=== PATIENT | female | born 1950 | race Caucasian/White ===

== ENCOUNTER 2016-10-26 19:08 | Inpatient (IN) | payer BC, MEDICARE ==
--- NOTE | ~2016-10-26 | CO ---
Unit #: [id number] #: [id number] Patient: RAMOS HUBER [id number] [address] [place], [place] [address] [id number] I MR#: [id number] NAME: RAMOS HUBER. ROOM: 314 Age: 66 Sex: F Admission Date: 10/26/2016 : 1950 Attending Physician: Adrianna Parmar M.D. Primary Care Physician: Pia Pool M.D. CONSULTATION REPORT REASON FOR CONSULTATION Elevated troponin. HISTORY OF PRESENT ILLNESS This is a 66-year-old white female, who is known to Dr. Vazquez, who has a history of coronary artery disease, where she had a myocardial infarction at some point. She had a PCI in 1998 and coronary artery bypass graft x6 in 2000. At that year later, she underwent angioplasty with stent placement. She is known to have paroxysmal atrial fibrillation and is on anticoagulation with Coumadin. The patient is admitted with altered mental status. She states she was in her usual state of health, but her only complaint was right leg pain. She was outside cleaning out of [facility] to get ready for trip and does not remember anything else until she awakened in the hospital. According to the records, the patient was found by her lying in the sun in the yard. She was confused. She was brought into the emergency room for evaluation, where she was found to be febrile with temperature of 105.8. She has been treated for urinary tract infection. There was elevation of her CK total of 1826 consistent with rhabdomyolysis. Her troponin initially negative, but peaked today at 1.49. She had no acute EKG changes. She denies any symptoms of angina, palpitations, or dizziness. She had no paroxysmal nocturnal dyspnea, orthopnea, or leg edema prior to this event. She is hypertensive with blood pressure 157/118 mmHg. She remains chest pain free. PAST MEDICAL HISTORY 1. 2D echocardiogram, 05/14/2013, showed an ejection fraction equal to 50% to 55% with impaired left ventricular relaxation. Very high LVEDP. Severe concentric left ventricular hypertrophy. Left atrium mildly dilated. Trace mitral regurgitation and trace tricuspid regurgitation. 2. Myocardial infarction with history of PCI in 1998. 3. PCI and stent in 2001. No details available. 4. Coronary artery bypass graft x6 in 2000 at [facility]. No details available. 5. Paroxysmal atrial fibrillation, on anticoagulation with Coumadin. 6. Hypertension. 7. Hyperlipidemia. 8. Diabetes mellitus, type 2. 9. Chronic kidney disease. 10. Obstructive sleep apnea. 11. Atrophic kidney. 12. Anxiety/depression. 13. Active smoker. Unit #: [id number] #: [id number] Patient: RAMOS HUBER W 14. Chronic back pain. PAST SURGICAL HISTORY 1. Coronary artery bypass x6. 2. Hemorrhoidectomy. 3. Cataract extraction. 4. Cholecystectomy. 5. Right foot surgery. SOCIAL HISTORY The patient is and retired. She continues to smoke half a pack of cigarettes daily since she was in the 4th grade. She denies illicit drug or alcohol use. FAMILY HISTORY Positive for heart disease in her brother. ALLERGIES No known drug allergies. HOME MEDICATIONS Neurontin 600 mg daily; isosorbide mononitrate 30 mg daily; furosemide 80 mg daily; Lipitor 40 mg daily; melatonin 5 mg daily; metoprolol tartrate 25 mg b.i.d.; Prilosec 20 mg daily; Requip 5 mg daily; sodium bicarbonate 325 mg t.i.d.; Prinivil 10 mg daily; Zanaflex 4 mg daily; Lantus 28 units q.h.s.; Humalog 14 units subcu a.c. breakfast, 10 units a.c. lunch, 14 units a.c. dinner; Spiriva 1 inhalation daily; vitamin B complex two tablets daily; ProAir HFA two puffs inhaled q.6 hours p.r.n.; Flonase nasal spray, two sprays each nostril daily; Lumigan one drop OU daily; hydrocodone/acetaminophen 10/325 t.i.d. REVIEW OF SYSTEMS CONSTITUTIONAL: Negative for fever or chills. Had no weight gain or weight loss. HEENT: No headache. No vision changes or difficulty with swallowing. Denies dizziness. CARDIOVASCULAR: Has no symptoms of angina. Denies palpitations. No paroxysmal nocturnal dyspnea or orthopnea. Unsure of syncope or near syncope. RESPIRATORY: Negative for dyspnea, cough, or hemoptysis. GASTROINTESTINAL: No abdominal pain, nausea, or vomiting. No constipation or melena. EXTREMITIES: Positive for left leg pain. Denies lower extremity edema. PHYSICAL EXAMINATION VITAL SIGNS: Blood pressure 160/80, heart rate 79, temperature 98.0, BMI 34. GENERAL: This is a very pleasant 66-year-old middle-aged white female, who is in no acute respiratory distress. NEUROLOGIC: She is awake, alert, and oriented. There are no focal weaknesses. NECK: Trachea is midline. No thyromegaly. No lymphadenopathy. No jugular venous distention. HEART: S1 and S2. Heart sounds are normal. No murmurs, rubs, or clicks. Regular rate and rhythm. LUNGS: Diminished breath sounds with crackles at bilateral lung bases. ABDOMEN: Soft and nontender with bowel sounds are present. EXTREMITIES: Without leg edema. Unit #: [id number] #: [id number] Patient: RAMOS HUBER SKIN: Warm and dry. Noted for redness in bilateral upper and lower extremities. Facial redness seen. There is a wound to her right lateral aspect of her right ankle. No drainage noted. DIAGNOSTIC STUDIES LABORATORY RESULTS: Glucose 107, BUN 23, creatinine 1.2, sodium 136, potassium 3.6, magnesium 1.5. CK total 1826, MB 55.3, MB index 3.0, troponin less than 0.05 and 1.49. Protime 41.3, INR 3.7. White count 18.8, hemoglobin 13.4, hematocrit 40.5, platelet count 123. IMPRESSION 1. Altered mental status. 2. Urinary tract infection. 3. Rhabdomyolysis. 4. Acute non-Q wave myocardial infarction. 5. Uncontrolled hypertension. 6. Coronary artery disease with history of myocardial infarction. Percutaneous coronary intervention, stent, and coronary artery bypass graft. 7. Paroxysmal atrial fibrillation, currently in normal sinus rhythm. 8. Over anticoagulation. 9. Hyperlipidemia. 10. Diabetes mellitus, type 2. 11. Nicotine abuse. PLAN 1. Cardiology was consulted for elevated troponin. The patient's troponin ruled her in for an acute non-ST elevation myocardial infarction. She has no acute ischemic changes. Recommend cardiac catheterization. This has been discussed with the patient and she is agreeable. 2. We will have Dr. Jeremi Colunga to see the patient for chronic kidney disease and need for cardiac catheterization. 3. Coumadin is currently on hold. We will start Lovenox when INR is below 1.8. 4. The patient remains in normal sinus rhythm. Continue beta-tiffanie. 5. Start on aspirin. 6. TSH and lipid profile will be obtained. 7. Encourage the patient to quit smoking. Thank you for allowing us to assist in this patient's care. Dictated by... Maria L Poe/jeffery TD: 10/28/2016 03:01 JOB #: [id number] CC: Heron Sancehz M.D. Unit #: [id number] #: [id number] Patient: RAMOS HUBER CONSULTATION REPORT Page 1 of 1 X Johann Mejía APRN X CONSULTATION REPORT
--- NOTE | ~2016-10-26 | CR72 ---
[facility] A Service of [facility] & [facility] RADIOLOGY TEXT RESULTS PATIENT: RAMOS HUBER LOCATION: [facility] 314-01 : [birth year] UNIT #: [id number] AGE: [address]: Adrianna Parmar MD SEX: F ORDER DR: [id number] [facility] [address] [place], [place] [address] [id number] I MR#: [id number] Acc #: [id number] NAME: RAMOS HUBER. : 1950 SEX: F STUDY DATE/TIME: 10/26/2016 18:07 UNIT: [facility] ROOM: 60265 STUDY DESCRIPTION: CR Chest Single View Portable Attending Physician: Yvonne Hendrickson M.D. Ordering Physician: Negrito Matthews M.D. Primary Care Physician: Pia Pool M.D. MEDICAL IMAGING REPORT This report is preliminary unless electronic signature is present EXAM AP portable chest 10/26 COMPARISON 05/23/2013. HISTORY Shortness of breath and fever beginning today. FINDINGS An AP view is obtained showing cardiac enlargement with postop changes of prior sternotomy. The pulmonary vascular markings are normal and the lungs appear clear. CONCLUSION Stable cardiomegaly. No acute process in the chest. Dictated by... Ernesto Garcia M.D. THIS IS AN ELECTRONICALLY VERIFIED REPORT Ernesto Garcia M.D. at 10/30/2016 7:21 AM BESSIE/janes TD: 10/26/2016 22:22 JOB #: [id number] MEDICAL IMAGING REPORT Page 1 of 1 COPY
--- NOTE | ~2016-10-26 | HP ---
Unit #: [id number] #: [id number] Patient: RAMOS HUBER [id number] [address] [place], [place] [address] [id number] MR#: [id number] NAME: RAMOS HUBER ROOM: Age: 66 Sex: F Admission Date: 10/26/2016 : 1950 Attending Physician: Negrito Matthews M.D. Primary Care Physician: Pia Pool M.D. HISTORY AND PHYSICAL CHIEF COMPLAINT Pyelonephritis with sepsis and toxic metabolic encephalopathy. HISTORY OF PRESENT ILLNESS This 66-year-old type 2 diabetic female with hypertension, CAD, and PAF, is admitted for pyelonephritis, sepsis, and toxic metabolic encephalopathy. The patient notes increasing back pain over the past two days that was somewhat different than her usual back pain. She denies any urinary symptoms with the above. She apparently was seen normal by her this morning, who then returned home after 12 hours. When he returned home, patient was found lying outside in the sun with altered mental status. She was brought to this emergency department where her initial core temperature was 105.8, and she was quite confused. Patient was aggressively treated with IV fluids and cool packs, along with Tylenol with improvement of her temperature and mental status. In the course of her evaluation, she was found to have a urinary tract infection/pyelonephritis and sepsis. She was bolused with two liters of saline, given two grams of IV Rocephin, and referred for admission. She is requiring oxygen, but denies shortness of breath or recent cough. Her lungs are clear on exam, as is her chest x-ray. PAST MEDICAL HISTORY 1. Adult-onset diabetes mellitus since 2000. 2. One functioning kidney with chronic kidney disease. 3. Chronic obstructive pulmonary disease with ongoing tobacco abuse. 4. Obstructive sleep apnea. 5. Essential hypertension. 6. Coronary artery disease, status post PCI and stents, along with CABG. Last echo at this facility revealed an ejection fraction of 50% to 55%. Patient has a history of paroxysmal atrial fibrillation and is chronically anticoagulated with Coumadin. 7. Hyperlipidemia. 8. Anxiety and depression. 9. Chronic low back pain. 10. Hemorrhoidectomy. 11. Cataract extraction. 12. Cholecystectomy. 13. Right foot surgery. ALLERGIES No known drug allergies. HOME MEDICATIONS Unit #: [id number] #: [id number] Patient: RAMOS HUBER 1. Januvia 100 mg daily. 2. Coumadin 7.5 mg Mondays, Wednesdays, and Fridays, and 5 mg the rest of the week. 3. Cymbalta 30 mg daily. 4. Evista 60 mg daily. 5. Neurontin 600 mg daily. 6. Imdur 30 mg daily. 7. Lasix 80 mg daily. 8. Lipitor 40 mg daily. 9. Melatonin 5 mg at bedtime. 10. Lopressor 25 mg b.i.d. 11. Omeprazole 20 mg daily. 12. Requip 5 mg daily. 13. Sodium bicarbonate 325 mg t.i.d. 14. Lisinopril 10 mg daily. 15. Zanaflex 4 mg daily. 16. Lantus 28 units at bedtime and 14 of NovoLog in the morning, 10 units before lunch, and 14 units before dinner. 17. Spiriva 1 puff daily. 18. B-Complex daily. 19. ProAir 2 puff q.6 hours. 20. Flonase nasal spray. 21. Lumigan 0.01% at 1 drop b.i.d. 22. [place] 10/325 t.i.d. FAMILY HISTORY Ovarian cancer. SOCIAL HISTORY The patient lives with her . She smokes one-half pack per day of tobacco and does not drink alcohol. REVIEW OF SYSTEMS Notable for back pain, diabetes, heart disease, PAF, anticoagulated, chronic low back pain, PAUL, COPD, one functioning kidney, and above-mentioned surgeries. Also some diarrhea today. All other systems were reviewed and are otherwise negative. PHYSICAL EXAMINATION GENERAL: A morbidly obese, 66-year-old female who looks to be sunburned and who looks to be uncomfortable. VITAL SIGNS: Initial core temperature 105.8 which has improved to 101 after treatment, heart rate 109, respirations 27, blood pressure 156/83, and O2 saturation is 98% on 4 liters of oxygen. HEENT: Eyes PERRLA. Extraocular muscles are intact. Status post cataract extraction. Pharynx with dry mucosal membranes. NECK: Supple without adenopathy or thyromegaly. CHEST: Clear. CARDIAC: Normal S1 and S2, without definite murmur. Slightly tachycardic. ABDOMEN: Bowel sounds are present. No hepatosplenomegaly, tenderness, or masses. EXTREMITIES: Without clubbing, cyanosis, or edema. Pedal pulses are diminished. No ulcers on the feet. SKIN: Sunburn over the face and neck region and lower abdomen, along with arms and distal lower extremities. NEUROLOGIC: Patient is awake and alert. She is oriented. Her cranial nerves are intact. She is generally weak on exam but has equal strength throughout. Of note, she has voluminous diarrhea. Unit #: [id number] #: [id number] Patient: RAMOS HUBER DIAGNOSTIC STUDIES ADMISSION LABORATORY: Hematocrit is 45.4, white blood count is 17.3, and normal platelet count. Eight bands are noted. INR is 3.4. SMA-12 with glucose of 141, potassium 3.1, phosphorus 1.7, and AST 72. CPK is 403. Lactic acid 2.1. Cardiac markers are negative. Urinalysis positive leukocyte esterase, nitrites, and protein, with 100-200 white cells, 4+ bacteria, no squamous cells seen, and 5-10 red cells. Nitrite positive. IMAGING: Chest x-ray cardiomegaly but no acute disease. Head CT possible acute on chronic maxillary sinusitis. CARDIOLOGY: EKG sinus rhythm, rate 90, nonspecific ST wave abnormalities. ASSESSMENT 1. Pyelonephritis with sepsis and toxic metabolic encephalopathy. 2. Voluminous diarrhea. 3. Chronic kidney disease with one functioning kidney. 4. Sunburn after laying outside in the sun. 5. Adult-onset diabetes mellitus. 6. Hypokalemia. 7. Chronic obstructive pulmonary disease with acute hypoxic respiratory failure. Of note, arterial blood gas shows a pH of 7.46, PCO2 of 36, PO2 of 56, and O2 saturation 88% on 50% Ventimask initially. This has improved however. Chest x-ray negative. The patient is anticoagulated. She denies any respiratory symptoms. 8. Obstructive sleep apnea, on CPAP. 9. Chronic low back pain. 10. Ongoing tobacco abuse. 11. Essential hypertension. 12. Coronary artery disease with our echocardiogram showing normal function in 2012. The patient is status post percutaneous coronary intervention, stent, and coronary artery bypass grafting. She has a history of paroxysmal atrial fibrillation but currently is in a normal sinus rhythm. She is anticoagulated with a supratherapeutic INR. PLANS 1. Rocephin and Levaquin pending blood and urine cultures. 2. Stool cultures and I will give a dose or two of Flagyl pending culture results. 3. IV fluids. The patient received two liters of saline in the ER. Given her voluminous diarrhea and the fact that she does take p.o. bicarbonate, I will place on one-half normal saline given that she has a normal blood pressure. 4. Hold Coumadin until INR is less than 3. 5. Decrease insulin for now. 6. Hold Lasix, Neurontin, Evista, and lisinopril until reexamined in the morning and repeat labs are performed in the morning. 7. Smoking cessation counseling. 8. Recheck labs in the morning along with cardiac enzymes and CPK. 9. Replace potassium and check magnesium. 10. Calamine lotion. 1. Dictated by Yvonne Hendrickson M.D. Unit #: [id number] #: [id number] Patient: RAMOS HUBER AML/am TD: 10/26/2016 21:26 JOB #: [id number] HISTORY AND PHYSICAL Page 1 of 1 X Yvonne Hendrickson MD X HISTORY AND PHYSICAL
--- NOTE | ~2016-10-26 | EKG ---
PATIENT: RAMOS HUBER UNIT #: [id number] Ventricular Rate: 99 BPM Atrial Rate: 99 BPM P-R Interval: 156 ms QRS Duration: 88 ms Q-T Interval: 348 ms QTC Calculation(Bezet): 446 ms P [place]: 79 degrees Calculated R [place]: 76 degrees Calculated T [place]: 111 degrees Diagnosis Line: Sinus rhythm with Premature atrial complexes Diagnosis Line: ST and T wave abnormality, consider lateral ischemia Diagnosis Line: Abnormal ECG Diagnosis Line: When compared with ECG of 25-MAY-2013 06:56, Diagnosis Line: Premature atrial complexes are now Present Diagnosis Line: WI interval has decreased Diagnosis Line: Vent. rate has increased BY 35 BPM Diagnosis Line: ST now depressed in Inferior leads Diagnosis Line: ST no longer elevated in Anterior leads Diagnosis Line: ST now depressed in Lateral leads Diagnosis Line: Confirmed by JONO CHAN MD ([id number]) on 10/27/2016 Diagnosis Line: 6:22:28 AM INTERPRETING MD: ROCIO GIBBS
--- NOTE | ~2016-10-26 | CO ---
Unit #: [id number] #: [id number] Patient: RAMOS HUBER [id number] [address] [place], [place] [address] [id number] MR#: [id number] NAME: RAMOS HUBER. ROOM: 314 Age: 66 Sex: F Admission Date: 10/26/2016 : 1950 Attending Physician: Adrianna Parmar M.D. Primary Care Physician: Pia Pool M.D. Consultation Date: 10/27/2016 CONSULTATION REPORT REASON FOR CONSULTATION Followup for renal function, electrolytes, and clearance for cardiac catheterization. HISTORY OF PRESENT ILLNESS The patient is a 66-year-old white female with known history of hypertension, coronary artery disease, paroxysmal atrial fibrillation, came in with complaints of feeling unwell, chills, and noted to have UTI with urine cultures positive for E. coli with likely underlying pyelonephritis. On admission, temperature was 105.8 and she was confused. She has been started on IV fluids. She had received 2 L in the emergency room and started on IV Rocephin. The creatinine noted to be 1.3, potassium 3.6, magnesium 1.5, phosphorus level 1.4. The patient also reports diarrhea this morning. No history of vomiting. No noted hypotension. PAST MEDICAL HISTORY Significant for type 2 diabetes since 2000, chronic kidney disease with one functioning kidney, COPD, obstructive sleep apnea, hypertension, history of coronary artery disease with previous ejection fraction of 55%, hyperlipidemia, cataract, cholecystectomy, right foot surgery. ALLERGIES No known drug allergies. HOME MEDICATIONS Include Januvia, Coumadin, Cymbalta, Evista, Neurontin, Imdur, Lasix, Lipitor, melatonin, Lopressor 25 b.i.d., omeprazole 20 mg daily, sodium bicarbonate 325 t.i.d., lisinopril 10 mg daily, Lantus, and Spring. FAMILY HISTORY Significant for cancer of the ovaries. Unremarkable for end-stage renal disease. SOCIAL HISTORY The patient lives at home with her . Smokes half a pack a day. Does not drink. REVIEW OF SYSTEMS CVS: No chest pain. RESPIRATORY: No cough or expectoration. GI: As above. : As above. Unit #: [id number] #: [id number] Patient: RMAOS HUBER PHYSICAL EXAMINATION GENERAL: The patient is awake, alert, oriented. VITAL SIGNS: The temperature is 97.7, heart rate is 61 per minute, blood pressure 160/80, the saturation is 93%. HEENT: Head is atraumatic. Extraocular movements are intact. Sclerae are anicteric. NECK: Supple. There is no elevation of the JVD. CHEST: Clear. Air entry is equal bilaterally. Breathing is vesicular in nature. HEART: S1, S2 audible. There is no S3, no S4. ABDOMEN: Soft. There is no organomegaly. No guarding. No rigidity. No rebound tenderness. EXTREMITIES: There is no edema. 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 Cerebellar system intact. IMPRESSION 1. Renal function is currently at its baseline. Chronic kidney disease 2 to 3. We will hold Zestril and give Mucomyst and IV fluids on Sunday in preparation for cardiac catheterization on Sunday. The patient is at risk of acute tubular necrosis secondary to underlying sepsis syndrome, would refrain from nephrotoxic antibiotics and NSAIDs. Continue hydration at this time. 2. Hypertension, use hydralazine for blood pressure higher than 150. 3. Diabetes. 4. Hypertension. 5. Coronary artery disease, possible cardiac catheterization on Sunday. The patient is cleared for surgery. Risk of EVIN about 20% with a risk of needing dialysis less than 1%. We will follow the patient with you. Dictated by... Jeremi Colunga M.D. RA/jeffery TD: 10/28/2016 02:51 JOB #: [id number] CONSULTATION REPORT Page 1 of 1 X Jeremi Colunga MD CONSULTATION REPORT
--- NOTE | ~2016-10-26 | EKG ---
PATIENT: RAMOS HUBER UNIT #: [id number] Ventricular Rate: 61 BPM Atrial Rate: 61 BPM P-R Interval: 190 ms QRS Duration: 90 ms Q-T Interval: 466 ms QTC Calculation(Bezet): 469 ms P [place]: 71 degrees Calculated R [place]: 63 degrees Calculated T [place]: 121 degrees Diagnosis Line: Normal sinus rhythm Diagnosis Line: Normal ECG Diagnosis Line: When compared with ECG of 26-OCT-2016 18:10, Diagnosis Line: Premature atrial complexes are no longer Present Diagnosis Line: Vent. rate has decreased BY 38 BPM Diagnosis Line: ST no longer depressed in Lateral leads Diagnosis Line: T wave inversion no longer evident in Lateral Diagnosis Line: leads Diagnosis Line: Confirmed by DEVORAH BARRIENTOS MD ([id number]) on Diagnosis Line: 10/28/2016 4:49:38 PM INTERPRETING MD: JENARO
--- NOTE | ~2016-10-26 | CO ---
Unit #: [id number] #: [id number] Patient: RAMOS RHOADES [id number] [address] [place], [place] [address] [id number] I MR#: [id number] NAME: RAMOS RHOADES ROOM: 314 Age: 66 Sex: F Admission Date: 10/26/2016 : 1950 Attending Physician: Adrianna Parmar M.D. Primary Care Physician: Pia Pool M.D. Consultation Date: 10/29/2016 CONSULTATION REPORT PRIMARY CARE PHYSICIAN Pia Pool M.D. REASON FOR CONSULTATION Substantial hematochezia. HISTORY OF PRESENT ILLNESS Ms. Rhoades is a 66-year-old white female, who is admitted because of sepsis syndrome from E. coli urinary tract infection and pyelonephritis. The patient has a temperature of 106 on admission and was given IV fluids and cooling. Since after admission, she has had substantial hematochezia. She had a fecal management system tube, which has since been removed. The patient is currently taking diet by mouth. PAST MEDICAL HISTORY Significant for type 2 diabetes, chronic kidney disease with one functioning kidney, COPD, obstructive sleep apnea, hypertension, history of coronary artery disease with an ejection fraction of 55%, as well as hyperlipidemia. PAST SURGICAL HISTORY Included cholecystectomy, cataract surgery, and a right foot surgery. MEDICATIONS At home included Coumadin, Januvia, Cymbalta, Evista, Neurontin, Imdur, Lasix, Lipitor, melatonin, Lopressor, omeprazole, sodium bicarb, lisinopril, Lantus insulin, and Bellflower. ALLERGIES She has no known drug allergies. FAMILY HISTORY Significant for ovarian cancer. No family history of colon, pancreatic cancer, or liver disease. SOCIAL HISTORY Lives at home with her . Smokes half pack per day. Does not drink alcohol. REVIEW OF SYSTEMS Detailed review of organ systems does not reveal any recent weight loss. There is history of fever and chills. No history of cough, expectoration, or hemoptysis. No history of headache, seizures, chest pain, or syncope. No history of dysuria, hematuria, or pyuria. No history of focal seizures Unit #: [id number] #: [id number] Patient: RAMOS RHOADES W or extremity weakness. PHYSICAL EXAMINATION GENERAL: She is awake, alert, and oriented, and appears unwell. She does have shortness of breath on minimal conversation. VITAL SIGNS: Show a temperature of 99.2, pulse is 89 per minute and regular, respiratory rate is 18, blood pressure is 163/74. She weighs 200 pounds, which is close to her baseline weight. HEENT: She has mild pallor. There being no icterus, lymphadenopathy, or peripheral edema CARDIOVASCULAR: Normal heart sounds. No murmurs on auscultation. LUNGS: Reveals bilateral diminished symmetric air entry. ABDOMEN: Soft and nontender. Liver and spleen are not palpable. Bowel sounds normal. DIAGNOSTIC STUDIES LABORATORY RESULTS: Shows a normal BUN and creatinine, electrolytes, and albumin of 2.8. LFTs show mild elevation of AST, ALT, and CK level is 1826. Hemoglobin is normal and white count is 18,000 with left shift, platelet count is 157. INR is 1.3. CLINICAL IMPRESSION The most likely etiology of the patient's hematochezia seems to be trauma from fecal management system tube. The patient is too sick to withstand a colonoscopy. Therefore, at the present time, suggesting only limited sigmoidoscopy to see if there is any traumatic injury to the anal canal. A full colonoscopy can be scheduled at later date when the patient is feeling much better from respiratory hemodynamics standpoint. Thank you very much for asking me to see this pleasant woman. I appreciate the consult. Dictated by... Heron Rodriguez/jeffery TD: 10/30/2016 01:39 JOB #: [id number] CONSULTATION REPORT Page 1 of 1 X Lupillo Mckeon MD X CONSULTATION REPORT
--- NOTE | ~2016-10-26 | CT71 ---
[facility] RADIOLOGY TEXT RESULTS PATIENT: RAMOS HUBER LOCATION: [facility] 314-01 : 48 UNIT #: [id number] AGE: [address]: Adrianna Parmar MD SEX: F ORDER DR: [id number] [facility] [address]. [place], [place] [address] [id number] I MR#: [id number] Acc #: [id number] NAME: RAMOS HUBER. : 1950 SEX: F STUDY DATE/TIME: 10/26/2016 19:16 UNIT: CEDOF ROOM: [id number] STUDY DESCRIPTION: CT Head Wo Contrast Attending Physician: Yvonne Hendrickson M.D. Ordering Physician: Negrito Matthews M.D. Primary Care Physician: Pia Pool M.D. MEDICAL IMAGING REPORT This report is preliminary unless electronic signature is present EXAM Noncontrast head CT HISTORY Possible heat stroke, found down outside, confused, disoriented. COMPARISON STUDIES Head CT 05/13/2013. TECHNIQUE This CT exam was performed with one or more of the following radiation dose reduction techniques: automatic exposure control, adjustment of mA and/or kV according to patient size, and iterative reconstruction. FINDINGS Axial noncontrast imaging brain demonstrates brain parenchyma to be normal. No mass or hemorrhage. Ventricles, sulci and basilar cisterns age appropriate. Left maxillary sinus mucosal thickening and fluid could represent [id number] sinusitis. There is also bilateral ethmoid and sphenoid sinus mucosal disease. IMPRESSION 1. No acute intracranial abnormality identified. 2. Sinus disease with questionable [id number] left maxillary sinusitis. Dictated by... Karie Marshall M.D. [facility] RADIOLOGY TEXT RESULTS PATIENT: RAMOS HUBER LOCATION: [facility] 314-01 : [birth year] UNIT #: [id number] AGE: [address]: Adrianna Parmar MD SEX: F ORDER DR: THIS IS AN ELECTRONICALLY VERIFIED REPORT Karie Marshall M.D. at 10/27/2016 6:37 PM DANITA/janes TD: 10/26/2016 23:07 JOB #: [id number] MEDICAL IMAGING REPORT Page 1 of 1 COPY
--- NOTE | ~2016-10-26 | OR ---
Unit #: [id number] #: [id number] Patient: RAMOS HUBER [id number] [address] [place], [place] [address] [id number] I MR#: [id number] NAME: RAMOS HUBER. ROOM: [facility] Date of Procedure: 10/30/2016 Admission Date: 10/26/2016 Surgeon: Lupillo Mckeon M.D. : 1950 Attending Physician: Adrianna Parmar M.D. Primary Care Physician: Pia Pool M.D. OPERATIVE REPORT PRIMARY CARE PHYSICIAN Pia Pool M.D. PREOPERATIVE DIAGNOSIS Substantial hematochezia. PROCEDURE PERFORMED Colonoscopy up to hepatic flexure. POSTOPERATIVE DIAGNOSES 1. The patient had changes of trauma to the rectosigmoid area from fecal management system. 2. Mild sigmoid and descending colon diverticulosis. 3. Otherwise examination was normal up to hepatic flexure. Proximal insertion was avoided as there were solid stool proximally. The mucosa otherwise throughout was normal. RECOMMENDATIONS The patient should not have any fecal management system at least for the next foreseeable future and this will cause total healing of the area within the next 3 to 4 weeks. SEDATION USED MAC. DESCRIPTION OF PROCEDURE Following detailed explanation of the potential risks and complications of a colonoscopy, namely perforation, bleeding, and complication related to sedation, the patient was brought to GI lab and laid in the left lateral decubitus position. A digital rectal examination was performed, which was normal. Lubricated tip of the Olympus video colonoscope was inserted through the anus and advanced under direct vision. The scope was advanced past rectosigmoid into descending colon. The patient was noted to have ulceration in the rectum and sigmoid especially at the rectosigmoid junction, which were confluent and corresponded to the insertion of the fecal management system tube. In addition, scant diverticula were also noted in this area. Proximally, the mucosa was normal. The scope tip was then navigated all the way up to the area of the hepatic flexure. Proximally, solid stool precluded any further insertion. Successive segments of the colonic mucosa were examined upon withdrawal and appeared unremarkable except for the changes noted earlier in the rectosigmoid area. The scope was then withdrawn and the patient returned to recovery Unit #: [id number] #: [id number] Patient: RAMOS HUBER. She tolerated the procedure without any postprocedure complications. Dictated by... Heron Rodriguez/jeffery TD: 10/30/2016 22:44 JOB #: [id number] OPERATIVE REPORT Page 1 of 1 X Lupillo Mckeon MD PROCEDURE OPERATIVE NOTE
--- NOTE | ~2016-10-26 | DS ---
Unit #: [id number] #: [id number] Patient: RAMOS HUBER [id number] [address] [address] [id number] I MR#: [id number] NAME: RAMOS HUBER. ROOM: 314 Age: 66 Sex: F Admission Date: 10/26/2016 : 1950 Discharge Date: 11/01/2016 Attending Physician: Adrianna Parmar M.D. Primary Care Physician: Pia Pool M.D. DISCHARGE SUMMARY DISCHARGE DIAGNOSES 1. Acute non-ST myocardial infarction elevation with multiple vessel disease on cardiac catheterization. 2. Acute pyelonephritis. 3. Sepsis. 4. Toxic metabolic encephalopathy. 5. Urinary tract infection. 6. Acute kidney injury. 7. Chronic kidney disease, stage 2, with 1 functioning kidney. 8. Diarrhea on admission. No c-diff. 9. Sunburn. 10. Diabetes mellitus type 2, uncontrolled. 11. Hypokalemia. 12. Chronic obstructive pulmonary disease with exacerbation. 13. Acute hypoxic respiratory failure. 14. Urinary tract infection. 15. Hematochezia with lower GI bleed, status post sigmoidoscopy. 16. Hypokalemia. 17. Anxiety. 18. Acute rhabdomyolysis. 19. History of coronary artery bypass grafting. 20. Obstructive sleep apnea. 21. Chronic back pain. 22. Hemorrhoidectomy. CONSULTANTS Dr. Voss. Dr. Colunga. Dr. Mckeon. PROCEDURES PERFORMED The patient had a colonoscopy up to the hepatic flexure which shows changes of trauma to the rectosigmoid area from fecal management system. Colonic diverticulosis present. Cardiac catheterization has been done, which shows multivessel disease. DIAGNOSTIC DATA LABORATORY: Blood cultures negative. White blood cell count 12.0, hemoglobin 12.4, platelets 218, sodium 140, potassium 3.9, creatinine 0.7, glucose 174. ALLERGIES No known drug allergies. Unit #: [id number] #: [id number] Patient: RAMOS HUBER DISCHARGE MEDICATIONS 1. Plavix 75 mg p.o. daily. Start date 11/04/2016. 2. ProAir 2 puffs inhalation q.6 h. p.r.n. shortness of breath. 3. Sodium bicarb 325 mg p.o. t.i.d. 4. Flonase 2 sprays nasally daily. 5. Spiriva 1 inhalation daily. 6. Coumadin 7.5 mg p.o. Sunday, Sunday and Sunday. 7. Coumadin 5 mg p.o. Sunday, , Sunday and Sunday. 8. Neurontin 100 mg daily. 9. Cymbalta 30 mg daily. 10. Januvia 100 mg daily. 11. Requip 5 mg daily. 12. Norvasc 5 p.o. b.i.d. 13. Metoprolol 50 p.o. b.i.d. 14. Lipitor 40 daily. 15. Hydralazine 100 t.i.d. 16. Lisinopril 20 p.o. daily. 17. Lantus 28 units at bedtime. 18. Lumigan eyedrops daily. 19. Evista 60 daily. 20. Melatonin 5 daily. 21. Aspirin 81 mg daily. 22. Lortab 10 mg t.i.d. 23. Spironolactone 12.5 mg p.o. daily. 24. Prilosec 20 daily. 25. Imdur ER 60 daily. 26. Nitroglycerin 0.4 mg sublingual q.5 minutes times 3 p.r.n. chest pain. 27. Vitamin B complex 2 tablets p.o. daily. 28. Keflex 500 mg p.o. b.i.d. for 6 more days. HOSPITAL COURSE The patient is a 66-year-old admitted because of abdominal pain. 1. Acute non-ST myocardial infarction elevation. The patient had a cardiac catheterization which showed multivessel disease. The patient could not have a stent placed because of recent GI bleed. According to Dr. Mckeon, the patient can have Plavix in seven days time. Because the patient cannot have Plavix could not have a stent place. Dr. Voss said to continue the aspirin and Lipitor and continue the Plavix in a week and follow with him. He will have outpatient followup. Dr. Voss is supposed to talk to the surgeons at [facility] for further evaluation and treatment for possible coronary artery bypass grafting if needed. 2. Sepsis from acute pyelonephritis: Urine culture are growing e-coli. The patient was on IV antibiotics. The patient will be discharged on Keflex for six more days. 3. Toxic metabolic encephalopathy from urinary tract infection: Resolved. 4. Acute kidney injury with chronic kidney disease stage 2-3: One functioning kidney only. The patient was seen by nephrology. Currently creatinine is stable. 5. Diabetes mellitus type 2: Controlled. Continue with insulin. 6. Chronic obstructive pulmonary disease: Exacerbation with acute hypoxic respiratory on chronic respiratory failure. Continue oxygen and continue with duo-nebs. The patient does not need any Solu-Medrol. Unit #: [id number] #: [id number] Patient: RAMOS HUBER 7. Hypertension: Uncontrolled. Multiple medications. Aspirin added. I am going to give her prescriptions. 8. History of paroxysmal atrial fibrillation: The patient is on Coumadin which was on hold secondary to GI bleed. Currently no active bleeding. Hemoglobin stable. Continue with Coumadin. The patient PT/INR check on 11/03/2016. Follow up with primary care physician for results. 9. Hypokalemia: Replaced with potassium. 10. Diarrhea: No c-diff. 11. Discussed with and son in detail. They understand the plan. The patient needs to see a rn complex care for coronary artery disease. She can see Dr. Voss or her own rn complex care upon discharge. The patient is okay to be discharged as per cardiology. I discussed with Dr. Voss and he said okay to be discharged. FOLLOWUP 1. Follow up with family physician in one week time. 2. Follow up with Dr. Carson, her rn complex care, in two weeks time. Discharge time taken was 40 minutes. 1. 1. Dictated by... Adrianna Parmar M.D. ADILSON/dafne TD: 11/01/2016 14:47 JOB #: [id number] CC: Pia Pool M.D. DISCHARGE SUMMARY Page 1 of 1 X Adrianna Parmar MD X DISCHARGE SUMMARY
--- NOTE | ~2016-10-26 | EKG ---
PATIENT: RAMOS HUBER UNIT #: [id number] Ventricular Rate: 80 BPM Atrial Rate: 80 BPM P-R Interval: 164 ms QRS Duration: 94 ms Q-T Interval: 422 ms QTC Calculation(Bezet): 486 ms P [place]: 68 degrees Calculated R [place]: 72 degrees Calculated T [place]: 95 degrees Diagnosis Line: Normal sinus rhythm Diagnosis Line: Normal ECG Diagnosis Line: When compared with ECG of 27-OCT-2016 08:43, Diagnosis Line: (unconfirmed) Diagnosis Line: Non-specific change in ST segment in Lateral leads Diagnosis Line: Confirmed by JONO CHAN MD ([id number]) on 10/29/2016 Diagnosis Line: 7:12:49 AM INTERPRETING MD: ROCIO GIBBS
[2016-10-26 18:22] LABS: ARTERIAL BLD GAS O2 SATURATION 87.6 % (90.0-100.0); ARTERIAL BLOOD GAS CARBOXY HB 3.5 %sat (0.0-9.0); ARTERIAL BLOOD GAS HCO3 25.9 mmol/L; ARTERIAL BLOOD GAS MET HB 0.7 %sat (0.0-2.0); ARTERIAL BLOOD GAS PCO2 36.1 mmHg (35.0-45.0); ARTERIAL BLOOD GAS pH 7.465 (7.350-7.450)
[2016-10-26 18:24] LABS: ARTERIAL BLOOD GAS ALLEN TEST NORMAL; ARTERIAL BLOOD GAS ART SITE LEFT RADIAL; ARTERIAL BLOOD GAS DELIVERY VENTURI MASK; ARTERIAL BLOOD GAS PO2 55.8 mmHg (80.0-100); ARTERIAL DRAW? YES
[2016-10-26 18:54] LABS: URINE SOURCE CLEAN CATCH
[~2016-10-26 19:08] MED LIST: ACTOS PO; ALBUTEROL17 GM INH; ALTACE PO; AMARYL PO; AMARYL2 MG PO; ANTACID325 MG PO; ASPIRIN PO; ASPIRIN81 M2 PO; B6100 MG PO; BENZONATATE PO; CALCIUM + VITAM1 TAB PO; CALCIUM 600 +1 EAC3 PO; CENTRUM SILVER PO; COMBIVENT RESPIM4 GM IH; COMBIVENT RESPIM4 GM IN; COMBIVENT14.7 GM INH; COUMADIN5 MG PO; CYMBALTA PO; CYMBALTA30 MG PO; DOXYCYCLINE HY100 M1 PO; EVISTA60 M1 PO; FLEXERIL PO; FLEXERIL10 MG PO; FUROSEMIDE80 MG PO; GABAPENTIN300 M2 PO; GLUCOVANCE 5/501 TA2 PO; HYDROCODON-ACE1 EAC5 PO; HYDROCODONE/APA1 T16 PO; IMDUR PO; IMDUR-ER30 M1 PO; IMDUR30 MG PO; JANUVIA PO; JANUVIA100 MG PO; K-DUR20 ME1 PO; KCL PO; LASIX PO; LIPITOR PO; LIPITOR40 MG PO; LUMIGAN2.5 ML OP; LUMIGAN2.5 ML OU; MELATONIN1 MG PO; MELATONIN3 MG PO; NEURONTIN300 MG PO; NEXIUM PO; NORCO 10-325 TA1 TAB PO; NORVASC10 MG PO; NORVASC2.5 MG PO; ONE DAILY WOME1 EAC1 PO; OYSTER CALCIUM500 MG PO; PACERONE PO; PAROXETINE HCL20 MG PO; PAXIL PO; PREDNISONE PO; PRILOSEC20 M1 PO; PRILOSEC20 MG PO; REQUIP5 MG PO; ROPINIROLE HCL5 MG PO; SOD BICARBONATE PO; SODIUM BICARBO325 MG PO; ST JOSEPH ASPIR81 M1 PO; STRESS FORMULA1 EACH; TOPROL XL PO; VICODIN ES 7.51 EAC1 PO; VIT B-12 PO; VITAMIN B-6200 MG PO; VITAMIN B-650 M1 PO; VITAMIN B650 M1 PO; ZITHROMAX PO
[2016-10-26 19:13] LABS: BASOPHIL% 0.1 % (0-2.5); EOSINOPHIL% 0.1 % (0.0-7.0); HEMATOCRIT 45.4 % (35.0-45.0); HEMOGLOBIN 14.7 gm/dL (12.0-16.0); LYMPHOCYTE# 1.3 X10e3 (1.0-3.5); LYMPHOCYTE% 7.5 % (17.0-45.0); MEAN CELL VOLUME 94.3 FL (83-96); MEAN CORPUSCULAR HEMOGLOBIN 30.6 PG (28-34); MEAN CORPUSCULAR HGB CONC 32.5 g/dL (30-36); MEAN PLATELET VOLUME 9.9 FL (6.5-11.5); MONOCYTE# 0.3 X10e3 (0-1.0); MONOCYTE% 1.7 % (3.0-12.0); NEUTROPHIL# 15.7 X10e3 (1.5-7.1); NEUTROPHIL% 90.6 % (40-75); PLATELET COUNT 171 X10e3 (140-420); RED BLOOD COUNT 4.81 X10e (3.90-5.30); RED CELL DISTRIBUTION WIDTH 14.9 % (11.0-15.5); WHITE BLOOD COUNT 17.3 X10e3 (4.0-10.5)
[2016-10-26 19:15] LABS: DIFF IND YES
[2016-10-26 19:21] LABS: INR 3.4; PROTHROMBIN TIME (PATIENT) 37.4 SECONDS (9.6-11.5)
[2016-10-26 19:23] LABS: URINE APPEARANCE CLOUDY; URINE BILIRUBIN NEG (NEG); URINE BLOOD 2+ (NEG); URINE COLOR YELLOW; URINE GLUCOSE NEG (NEG); URINE KETONE NEG (NEG); URINE LEUKOCYTE ESTERASE 2+ (NEG); URINE NITRATE POS (NEG); URINE PH 7.5 (5-8); URINE PROTEIN 2+ (NEG); URINE SPECIFIC GRAVITY 1.009 (1.003-1.035)
[2016-10-26 19:25] LABS: POC - CKMB 5.3 ng/mL (0.0-7.9); POC - TROPONIN <0.05 ng/mL (<=0.05)
[2016-10-26 19:25] LABS: CULTURE INDICATED? YES; URINE BACTERIA AUWI 4+ (NEGATIVE); URINE SQUAMOUS EPITHELIAL CELL NONE SEEN /[HPF]; UWBCS1 AUWI 100-200 (0-5)
[2016-10-26 19:46] LABS: MAGNESIUM 1.6 mg/dL (1.6-3.0); PHOSPHOROUS 1.7 mg/dL (2.5-4.6)
[2016-10-26 19:47] LABS: ANISOCYTOSIS SL; PLATELET ESTIMATE NORMAL (NORMAL)
[2016-10-26 20:06] LABS: ALBUMIN SERUM 3.6 g/dL (3.5-5.0); BILIRUBIN, DIRECT 0.5 mg/dL (0.0-0.2); BILIRUBIN,INDIRECT 1.4 mg/dL (0.0-0.9); BILIRUBIN,TOTAL 1.9 mg/dL (0.2-2.0); CALCIUM SERUM 9.2 mg/dL (8.4-10.2); CREATININE SERUM 1.4 mg/dL (0.6-1.4); GLOM FILT RATE Estimated 38.5 mL/min (>60); POTASSIUM 3.1 mmol/L (3.5-5.1); PROTEIN TOTAL SERUM 7.4 g/dL (6.0-8.3)
[2016-10-26] MEDS ORDERED: WARFARIN SODIU7.5 MG PO (21:49)
[2016-10-26] MEDS ORDERED: JANUVIA100 MG PO (21:49)
[2016-10-26] MEDS ORDERED: NEURONTIN600 MG PO (21:50)
[2016-10-26] MEDS ORDERED: CYMBALTA30 M1 PO (21:50)
[2016-10-26] MEDS ORDERED: EVISTA60 M1 PO (21:50)
[2016-10-26] MEDS ORDERED: JANTOVEN5 MG PO (21:50)
[2016-10-26] MEDS ORDERED: LIPITOR40 MG PO (21:51)
[2016-10-26] MEDS ORDERED: METOPROLOL TAR25 MG PO (21:51)
[2016-10-26] MEDS ORDERED: ISOSORBIDE MONO30 M1 PO (21:51)
[2016-10-26] MEDS ORDERED: LASIX80 MG PO (21:51)
[2016-10-26] MEDS ORDERED: MELATONIN5 M1 PO (21:51)
[2016-10-26] MEDS ORDERED: ROPINIROLE HCL5 MG PO (21:52)
[2016-10-26] MEDS ORDERED: SODIUM BICARBO325 MG PO (21:52)
[2016-10-26] MEDS ORDERED: PRINIVIL10 MG PO (21:52)
[2016-10-26] MEDS ORDERED: PRILOSEC PO (21:52)
[2016-10-26] MEDS ORDERED: TIZANIDINE HCL4 M1 PO (21:53)
[2016-10-26] MEDS ORDERED: HUMALOG100 UNIT/1 SUBQ ×3 (21:53→21:54)
[2016-10-26] MEDS ORDERED: LANTUS100 U/ML SUBQ (21:53)
[2016-10-26] MEDS ORDERED: SPIRIVA18 MCG INH (21:54)
[2016-10-26] MEDS ORDERED: B COMPLEX1 EACH PO (21:54)
[2016-10-26] MEDS ORDERED: PROAIR HFA8.5 GM INH (21:56)
[2016-10-26] MEDS ORDERED: LUMIGAN2.5 ML OU (21:56)
[2016-10-26] MEDS ORDERED: FLONASE 0.05% N16 G1 (21:56)
[2016-10-26] MEDS ORDERED: HYDROCODON-ACE1 EAC5 PO (21:57)
[2016-10-27 00:44] LABS: HEMATOCRIT 40.6 % (35.0-45.0); HEMOGLOBIN 13.3 gm/dL (12.0-16.0)
[2016-10-27 06:22] LABS: HEMATOCRIT 40.2 % (35.0-45.0)
[2016-10-27 07:05] LABS: BASOPHIL# 0.1 X10e3 (0-0.3); BASOPHIL% 0.4 % (0-2.5); DIFF IND NO; EOSINOPHIL% 0.1 % (0.0-7.0); HEMATOCRIT 40.5 % (35.0-45.0); HEMOGLOBIN 13.4 gm/dL (12.0-16.0); LYMPHOCYTE# 2.4 X10e3 (1.0-3.5); LYMPHOCYTE% 12.5 % (17.0-45.0); MEAN CELL VOLUME 93.3 FL (83-96); MEAN CORPUSCULAR HEMOGLOBIN 30.8 PG (28-34); MEAN PLATELET VOLUME 8.8 FL (6.5-11.5); MONOCYTE# 1.3 X10e3 (0-1.0); PLATELET COUNT 123 X10e3 (140-420); RED BLOOD COUNT 4.34 X10e (3.90-5.30); RED CELL DISTRIBUTION WIDTH 14.8 % (11.0-15.5); WHITE BLOOD COUNT 18.8 X10e3 (4.0-10.5)
[2016-10-27 07:12] LABS: INR 3.7; PARTIAL THROMBOPLASTIN TIME 47.9 SECONDS (23.5-31.3); PROTHROMBIN TIME (PATIENT) 41.3 SECONDS (9.6-11.5)
[2016-10-27 07:34] LABS: ALBUMIN SERUM 2.9 g/dL (3.5-5.0); BILIRUBIN,TOTAL 1.1 mg/dL (0.2-2.0); BUN/CREATININE RATIO 19.16; CREATININE SERUM 1.2 mg/dL (0.6-1.4); GLOM FILT RATE Estimated 46.4 mL/min (>60); MAGNESIUM 1.5 mg/dL (1.6-3.0); POTASSIUM 3.6 mmol/L (3.5-5.1); PROTEIN TOTAL SERUM 6.3 g/dL (6.0-8.3)
[2016-10-27 07:53] LABS: MB 55.2 ng/ml
[2016-10-27 11:17] LABS: CHOLESTEROL 59 mg/dL (0-200); HDL CHOLESTEROL 24 mg/dL (35-95); LDL CHOLESTEROL 24 mg/dL (-130); LDL/HDL RATIO 1 RATIO (0-4); TRIGLYCERIDES 56 mg/dL (10-160)
[2016-10-27 15:50] LABS: CREATININE,RANDOM URINE 59 mg/dL; SODIUM URINE RANDOM 36 mmol/L; TOTAL PROTEIN,RANDOM URINE 36 mg/dl (<10)
[2016-10-27 16:26] LABS: HEMATOCRIT 41.6 % (35.0-45.0); HEMOGLOBIN 13.5 gm/dL (12.0-16.0)
[2016-10-27 22:26] LABS: HEMATOCRIT 40.4 % (35.0-45.0); HEMOGLOBIN 12.9 gm/dL (12.0-16.0)
[2016-10-28 00:36] LABS: HEMOGLOBIN 12.6 gm/dL (12.0-16.0)
[2016-10-28 07:49] LABS: HEMATOCRIT 37.6 % (35.0-45.0); HEMOGLOBIN 12.1 gm/dL (12.0-16.0); MEAN CELL VOLUME 94.6 FL (83-96); MEAN CORPUSCULAR HEMOGLOBIN 30.3 PG (28-34); MEAN CORPUSCULAR HGB CONC 32.1 g/dL (30-36); MEAN PLATELET VOLUME 9.6 FL (6.5-11.5); RED BLOOD COUNT 3.98 X10e (3.90-5.30); RED CELL DISTRIBUTION WIDTH 14.8 % (11.0-15.5)
[2016-10-28 07:59] LABS: INR 1.8; PARTIAL THROMBOPLASTIN TIME 41.5 SECONDS (23.5-31.3)
[2016-10-28 08:15] LABS: PROTHROMBIN TIME (PATIENT) 19.2 SECONDS (9.6-11.5)
[2016-10-28 08:32] LABS: ALBUMIN SERUM 2.8 g/dL (3.5-5.0); BUN/CREATININE RATIO 18.57; CALCIUM SERUM 8.5 mg/dL (8.4-10.2); CREATININE SERUM 0.7 mg/dL (0.6-1.4); PHOSPHOROUS 2.6 mg/dL (2.5-4.6); POTASSIUM 3.6 mmol/L (3.5-5.1); PROTEIN TOTAL SERUM 5.9 g/dL (6.0-8.3)
[2016-10-29 05:23] LABS: BASOPHIL# 0.1 X10e3 (0-0.3); BASOPHIL% 0.3 % (0-2.5); EOSINOPHIL% 0.3 % (0.0-7.0); HEMATOCRIT 38.3 % (35.0-45.0); HEMOGLOBIN 12.4 gm/dL (12.0-16.0); LYMPHOCYTE# 1.6 X10e3 (1.0-3.5); MEAN CELL VOLUME 94.3 FL (83-96); MEAN CORPUSCULAR HEMOGLOBIN 30.4 PG (28-34); MEAN CORPUSCULAR HGB CONC 32.2 g/dL (30-36); MEAN PLATELET VOLUME 9.2 FL (6.5-11.5); MONOCYTE# 0.8 X10e3 (0-1.0); MONOCYTE% 4.2 % (3.0-12.0); NEUTROPHIL# 15.6 X10e3 (1.5-7.1); NEUTROPHIL% 86.2 % (40-75); PLATELET COUNT 157 X10e3 (140-420); RED BLOOD COUNT 4.07 X10e (3.90-5.30); RED CELL DISTRIBUTION WIDTH 14.6 % (11.0-15.5); WHITE BLOOD COUNT 18.1 X10e3 (4.0-10.5)
[2016-10-29 05:24] LABS: DIFF IND NO
[2016-10-29 05:51] LABS: BUN/CREATININE RATIO 11.42; CALCIUM SERUM 8.7 mg/dL (8.4-10.2); CREATININE SERUM 0.7 mg/dL (0.6-1.4); MAGNESIUM 1.9 mg/dL (1.6-3.0); PHOSPHOROUS 1.9 mg/dL (2.5-4.6); POTASSIUM 3.8 mmol/L (3.5-5.1)
[2016-10-29 05:52] LABS: INR 1.3; PROTHROMBIN TIME (PATIENT) 13.5 SECONDS (9.6-11.5)
[2016-10-30 07:44] LABS: HEMATOCRIT 38.1 % (35.0-45.0); HEMOGLOBIN 12.2 gm/dL (12.0-16.0); MEAN CELL VOLUME 94.3 FL (83-96); MEAN CORPUSCULAR HEMOGLOBIN 30.3 PG (28-34); MEAN CORPUSCULAR HGB CONC 32.1 g/dL (30-36); MEAN PLATELET VOLUME 8.9 FL (6.5-11.5); RED BLOOD COUNT 4.04 X10e (3.90-5.30); RED CELL DISTRIBUTION WIDTH 14.4 % (11.0-15.5); WHITE BLOOD COUNT 11.9 X10e3 (4.0-10.5)
[2016-10-30 07:58] LABS: INR 1.1
[2016-10-30 08:16] LABS: BUN/CREATININE RATIO 16.66; CALCIUM SERUM 8.6 mg/dL (8.4-10.2); CREATININE SERUM 0.6 mg/dL (0.6-1.4); GLOM FILT RATE Estimated 93.7 mL/min (>60); MAGNESIUM 1.7 mg/dL (1.6-3.0); POTASSIUM 3.7 mmol/L (3.5-5.1)
[2016-10-31 05:28] LABS: HEMATOCRIT 38.8 % (35.0-45.0); HEMOGLOBIN 12.6 gm/dL (12.0-16.0); MEAN CELL VOLUME 93.2 FL (83-96); MEAN CORPUSCULAR HEMOGLOBIN 30.2 PG (28-34); MEAN CORPUSCULAR HGB CONC 32.4 g/dL (30-36); MEAN PLATELET VOLUME 8.7 FL (6.5-11.5); RED BLOOD COUNT 4.17 X10e (3.90-5.30); RED CELL DISTRIBUTION WIDTH 14.9 % (11.0-15.5); WHITE BLOOD COUNT 11.5 X10e3 (4.0-10.5)
[2016-10-31 05:38] LABS: INR 1.1; PARTIAL THROMBOPLASTIN TIME 31.3 SECONDS (23.5-31.3); PROTHROMBIN TIME (PATIENT) 11.8 SECONDS (9.6-11.5)
[2016-10-31 06:31] LABS: BUN/CREATININE RATIO 12.85; CALCIUM SERUM 8.7 mg/dL (8.4-10.2); CREATININE SERUM 0.7 mg/dL (0.6-1.4); POTASSIUM 3.2 mmol/L (3.5-5.1)
[2016-11-01 11:01] LABS: HEMATOCRIT 38.6 % (35.0-45.0); HEMOGLOBIN 12.4 gm/dL (12.0-16.0); MEAN CELL VOLUME 94.5 FL (83-96); MEAN CORPUSCULAR HEMOGLOBIN 30.4 PG (28-34); MEAN CORPUSCULAR HGB CONC 32.1 g/dL (30-36); MEAN PLATELET VOLUME 8.4 FL (6.5-11.5); RED BLOOD COUNT 4.08 X10e (3.90-5.30); RED CELL DISTRIBUTION WIDTH 14.9 % (11.0-15.5)
[2016-11-01 11:30] LABS: BUN/CREATININE RATIO 12.85; CALCIUM SERUM 8.6 mg/dL (8.4-10.2); CREATININE SERUM 0.7 mg/dL (0.6-1.4); POTASSIUM 3.9 mmol/L (3.5-5.1)
[2016-11-01] MEDS ORDERED: CLOPIDOGREL75 MG PO (15:51)
[2016-11-01] MEDS ORDERED: NORVASC PO (15:52)
[2016-11-01] MEDS ORDERED: CALAMINE120 ML TOP (15:52)
[2016-11-01] MEDS ORDERED: LOPRESSOR PO (15:53)
[2016-11-01] MEDS ORDERED: HYDRALAZINE HC100 MG PO (15:53)
[2016-11-01] MEDS ORDERED: ALDACTONE25 MG PO (15:54)
[2016-11-01] MEDS ORDERED: LISINOPRIL20 MG PO (15:54)
[2016-11-01] MEDS ORDERED: ASPIRIN81 M2 PO (15:54)
[2016-11-01] MEDS ORDERED: IMDUR-ER60 M1 PO (15:55)
[2016-11-01] MEDS ORDERED: KEFLEX500 MG PO (15:56)
[2016-11-01] MEDS ORDERED: NITROGLYGERIN0.4 MG SL (15:56)
[2016-11-05 11:57] LABS: ALDOSTERONE SERUM <1 ng/dL (***)
== END 2016-11-01 17:37 | disposition home or self-care (01) | DRG 871 ==
LOC: CED 19:08 → CEDOF 21:10 → C3A PCU 10-27 00:01
PROVIDERS: Emergency Medicine; Internal Medicine; Internal Medicine Cardiovascular Disease; Internal Medicine Nephrology
PROC: B24BZZZ Ultrasonography of Heart with Aorta (ICD-10-PCS; principal; 2016-10-27)
PROC: 0DJD8ZZ Inspection of Lower Intestinal Tract, Via Natural or Artificial Opening Endoscopic (ICD-10-PCS; 2016-10-30)
PROC: 4A023N7 Measurement of Cardiac Sampling and Pressure, Left Heart, Percutaneous Approach (ICD-10-PCS; 2016-10-31)
PROC: B2111ZZ Fluoroscopy of Multiple Coronary Arteries using Low Osmolar Contrast (ICD-10-PCS; 2016-10-31)
PROC: B2151ZZ Fluoroscopy of Left Heart using Low Osmolar Contrast (ICD-10-PCS; 2016-10-31)
DX: A41.9 Sepsis, unspecified organism (principal); J96.01 Acute respiratory failure with hypoxia; I21.4 Non-ST elevation (NSTEMI) myocardial infarction; N17.9 Acute kidney failure, unspecified; G92 Toxic encephalopathy; M62.82 Rhabdomyolysis; E83.42 Hypomagnesemia; N12 Tubulo-interstitial nephritis, not specified as acute or chronic; K92.1 Melena; J44.1 Chronic obstructive pulmonary disease with (acute) exacerbation; I48.0 Paroxysmal atrial fibrillation; Z79.4 Long term (current) use of insulin; Z79.01 Long term (current) use of anticoagulants; I12.9 Hypertensive chronic kidney disease with stage 1 through stage 4 chronic kidney disease, or unspecified chronic kidney disease; G47.33 Obstructive sleep apnea (adult) (pediatric); I25.10 Atherosclerotic heart disease of native coronary artery without angina pectoris; E78.5 Hyperlipidemia, unspecified; R65.20 Severe sepsis without septic shock; Z72.0 Tobacco use; Z95.5 Presence of coronary angioplasty implant and graft; F41.9 Anxiety disorder, unspecified; F32.9 Major depressive disorder, single episode, unspecified; G89.29 Other chronic pain; M54.9 Dorsalgia, unspecified; R19.7 Diarrhea, unspecified; E87.6 Hypokalemia; Z99.81 Dependence on supplemental oxygen; L55.9 Sunburn, unspecified; E11.65 Type 2 diabetes mellitus with hyperglycemia; Z95.1 Presence of aortocoronary bypass graft; I50.9 Heart failure, unspecified; N18.2 Chronic kidney disease, stage 2 (mild); K57.30 Diverticulosis of large intestine without perforation or abscess without bleeding; Y83.8 Other surgical procedures as the cause of abnormal reaction of the patient, or of later complication, without mention of misadventure at the time of the procedure; Y73.8 Miscellaneous gastroenterology and urology devices associated with adverse incidents, not elsewhere classified
CPT/HCPCS: 36600; 51702; 70450; 71010; 80048; 80053; 80061; 80076; 81003; 82088; 82550; 82553; 82570; 82803; 82947; 83605; 83735; 84100; 84156; 84244; 84300; 84443; 84484; 85014; 85018; 85025; 85027; 85610; 85730; 86850; 86900; 86901; 87040; 87045; 87086; 87088; 87177; 87186; 87209; 87427; 87493; 87899; 93005; 93306; 94640; 94660; 94760; 99285; C1769; C1887; C1894; J0360; J0696; J1644; J1650; J1815; J1956; J2250; J3010; J3430; J3475